=== PATIENT | male | born 1965 | race Caucasian/White ===

== ENCOUNTER → 2017-03-11 | Day surgery (SDC) | payer BC ==
[~2017-03-11] MED LIST: ASPIRIN81 M2 PO; CARTIA XT240 MG PO; JANUMET 50-1,01 EACH PO; JARDIANCE25 MG PO; PROPRANOLOL HCL80 M1 PO; ROSUVASTATIN CA20 MG PO
--- NOTE | ~2017-03-11 | OR ---
Unit #: [id number] #: [id number] Patient: BRENT MUNIZ [id number] [address] [place], [place] [address] [id number] MR#: [id number] NAME: BRENT MUNIZ. ROOM: Date of Procedure: 03/11/2017 Admission Date: 03/11/2017 Surgeon: Sarkis Marquis M.D. : 1965 Attending Physician: Sarkis Marquis M.D. Primary Care Physician: Brea Zavala M.D. OPERATIVE REPORT PREOPERATIVE DIAGNOSIS Colorectal cancer screening in an average-risk patient. PROCEDURE PERFORMED Colonoscopy up to cecum with good prep and visualization. POSTOPERATIVE DIAGNOSES The patient had mild sigmoid and descending colon diverticulosis. Otherwise, examination was normal up to cecum. The quality of the prep was good. RECOMMENDATIONS Surveillance colonoscopy in future. SEDATION USED MAC. DESCRIPTION OF PROCEDURE Following detailed explanation of potential risks and complications of a colonoscopy, namely perforation, bleeding, and complication related to sedation, the patient was brought to GI lab and laid in the left lateral decubitus position. A digital rectal examination was performed which was normal. Lubricated tip of the Olympus video colonoscope was inserted through the anus, advanced under direct vision. The scope was advanced and passed up to sigmoid into descending colon. Multiple medium-sized diverticula were noted in this area. The scope was then navigated all the way up to cecum with visualization of the ileocecal valve and the appendiceal orifice. Preparation was fair to good with good visualization, and photodocumentation was obtained. Successive segments of the colonic mucosa were examined upon withdrawal and appeared unremarkable. There being no polyps, mass lesions, or AVMs. Other than the left-sided diverticula, no other abnormalities noted. The patient did not have any hemorrhoids at anal verge. The scope was withdrawn, and the patient was returned to the recovery area. The patient tolerated the procedure without any postprocedure complications. Dictated by... Declan Tidwell/liz Unit #: [id number] #: [id number] Patient: BRENT MUNIZ TD: 03/11/2017 12:42 JOB #: [id number] CC: Brea Zavala M.D. OPERATIVE REPORT Page 1 of 1 X Sarkis Marquis MD PROCEDURE OPERATIVE NOTE
== END | disposition home or self-care (01) ==
LOC: COPS 09:45
PROVIDERS: Internal Medicine Gastroenterology
PROC: 0DJD8ZZ Inspection of Lower Intestinal Tract, Via Natural or Artificial Opening Endoscopic (ICD-10-PCS; principal; 2017-03-11 11:00)
DX: Z12.11 Encounter for screening for malignant neoplasm of colon (principal); K57.30 Diverticulosis of large intestine without perforation or abscess without bleeding; K21.9 Gastro-esophageal reflux disease without esophagitis; E11.9 Type 2 diabetes mellitus without complications; Z79.84 Long term (current) use of oral hypoglycemic drugs; I10 Essential (primary) hypertension; E78.5 Hyperlipidemia, unspecified; Z79.899 Other long term (current) drug therapy; R01.1 Cardiac murmur, unspecified; Z90.49 Acquired absence of other specified parts of digestive tract; Z98.890 Other specified postprocedural states
CPT/HCPCS: 82947; J2250